=== PATIENT | male | born 1935 | race Caucasian/White ===

== ENCOUNTER 2016-09-28 11:23 | Emergency (ER) | payer MEDICARE, MEDICAID ==
[~2016-09-28] VITALS: Ht 177.8 cm; Wt 76.2 kg
--- NOTE | 2016-09-28 11:26 | NUR ---
bibra from snf due to right sided facial droop. Last known well today, 1100. Patient is awake, alert, follows simple commands, however patient was noted aphasic,. no severe weakness noted,. No sob, sating well on room air. SKin is warm to touch and non diaphoretic. Patient afebrile,. gowned and placed on tele monitor. vss. ekg leonie at bs. ,md Razo at bs.
--- NOTE | 2016-09-28 11:26 | NUR ---
CODE STROKE ACTIVATED
--- NOTE | 2016-09-28 11:27 | NUR ---
iv noted on rfa- iv inserted to lac 18. blood sample sent
--- NOTE | 2016-09-28 11:28 | NUR ---
patient taken to ct
--- NOTE | 2016-09-28 11:28 | NUR ---
patient arrived with left sided gaze only
--- NOTE | 2016-09-28 11:28 | NUR ---
CALLED [facility]' TELE STROKE HOTLINE, NEUROLOGIST DR. URENA
[2016-09-28 11:34] LABS: BASOPHILS % (AUTO) 0.5 % (0.0-2.0); EOSINOPHILS # (AUTO) 0.5 /CMM (0.0-0.7); EOSINOPHILS % (AUTO) 5.5 % (0.0-6.0); HEMATOCRIT 44 % (39-51); HEMOGLOBIN 14.6 g/dL (13.5-17.5); LYMPHOCYTES # (AUTO) 1.4 /CMM (0.8-4.8); LYMPHOCYTES % (AUTO) 15.3 % (20.0-44.0); MEAN CORPUSCULAR HEMOGLOBIN 31 PG (26.0-33.0); MEAN CORPUSCULAR HGB CONC 33 g/dl (31.0-36.0); MEAN CORPUSCULAR VOLUME 94 fL (80-96); MONOCYTES # (AUTO) 0.9 /CMM (0.1-1.30); MONOCYTES % (AUTO) 9.4 % (2.0-12.0); NEUTROPHILS # (AUTO) 6.5 /CMM (1.8-8.9); NEUTROPHILS % (AUTO) 69.3 % (43.0-81.0); PLATELET COUNT (AUTO) 302 /CMM (150-450); RDW COEFFICIENT OF VARIATION 13.9 (11.5-15.0); RED BLOOD CELL COUNT(AUTO) 4.72 MIL/uL (4.5-6.0); WHITE BLOOD COUNT (AUTO) 9.3 K/uL (4.3-11.0)
[2016-09-28] MEDS ORDERED: ASPI-991 PO (11:38)
[2016-09-28] MEDS ORDERED: ACET-2605 PO (11:38)
[2016-09-28] MEDS ORDERED: BISA10SU8 RC (11:38)
[2016-09-28] MEDS ORDERED: AMLO10TA4 PO (11:38)
[2016-09-28] MEDS ORDERED: ATEN50TA PO (11:38)
[2016-09-28] MEDS ORDERED: NA P133E RC (11:38)
[2016-09-28] MEDS ORDERED: SIMV10TA6 PO (11:38)
[2016-09-28] MEDS ORDERED: ACET-868 PO (11:38)
[2016-09-28] MEDS ORDERED: MAGN400O6 PO (11:38)
[2016-09-28] MEDS ORDERED: ALEN70TA45 PO (11:38)
[2016-09-28] MEDS ORDERED: CHOL50004 PO (11:38)
[2016-09-28 11:42] LABS: CALCIUM, SERUM 9.2 mg/dL (8.5-10.1); CARBON DIOXIDE 27 mmol/L (21-32); CHLORIDE 106 mmol/L (98-107); CREATININE 1.5 mg/dL (0.6-1.3); GLUCOSE 112 mg/dL (74-106); POTASSIUM 4.4 mmol/L (3.5-5.1); SODIUM SERUM 142 mmol/L (136-145); UREA NITROGEN, BLOOD 30 mg/dL (7-18)
[2016-09-28 11:46] LABS: INR 0.99 (0.87-1.13); PROTHROMBIN TIME 10.3 SECS (9.5-12.7)
--- NOTE | 2016-09-28 11:49 | NUR ---
MD Razo speaking with Dr. Brand
--- NOTE | 2016-09-28 11:49 | NUR ---
Dr. Brand, neuro-on [facility] assessing patient.
[2016-09-28 11:51] LABS: TROPONIN I < 0.017 ng/mL (0.00-0.056)
--- NOTE | 2016-09-28 11:56 | NUR ---
CALLED [facility] WHERE PATIENT RESIDES.
--- NOTE | 2016-09-28 12:01 | NUR ---
spoke with amarjit nurse from [facility], patient was confirmed to have a verbal baseline until this morning, patient was a/o x2, and did not have the left preference gaze. dr. rowe made aware.
--- NOTE | 2016-09-28 12:01 | NUR ---
CALLED PT'S STEP DAUGHTER SHELLEY [phone].
[2016-09-28] MEDS ORDERED: IV NS 0.9% 250 ML IV ONE (12:03)
[2016-09-28] MEDS ORDERED: IOHEXOL-350 100 ML VIAL IV ONE (12:04)
[2016-09-28] MEDS ORDERED: CT SWABBABLE VALVE TRANS SET 1 EA INFUS.SET MC ONE (12:04)
--- NOTE | 2016-09-28 12:09 | NUR ---
pt taken to ct again for cta
[2016-09-28] MEDS ORDERED: ALTEPLASE 100 MG/VIAL VIAL IV ONE ×3 (12:30→13:00)
--- NOTE | 2016-09-28 12:34 | NUR ---
CALLED [facility], SPOKE TO JOSELIN BARDALES TO INFORM HER OF [employer] [facility]. JOSELIN BARDALES STATES SHE WILL MAKE ARRAGEMENTS FOR TRANSFER
[2016-09-28] MEDS ORDERED: IV SET PRIMARY PUMP SET 1 EA INFUS.SET MC ONE (12:36)
--- NOTE | 2016-09-28 12:47 | NUR ---
FAXED FACESHEET TO [facility]
--- NOTE | 2016-09-28 14:37 | NUR ---
[facility] CALLED [facility] FOR TRANSPORT 45MINS.
[2016-09-28 14:47] VITALS: BP 144/88
--- NOTE | 2016-09-28 14:59 | NUR ---
PT WILL BE TRANSFERRED TO [facility] ICU ROOM [address] US NUMBER FOR REPORT IS [phone]
--- NOTE | 2016-09-28 15:24 | NUR ---
report given from [facility] for hanna
--- NOTE | 2016-09-28 15:24 | NUR ---
Pt trasported to [facility] via acls protocol. vss. Family aware
== END 2016-09-28 15:27 | disposition short-term general hospital (02) ==
LOC: ER 11:28
DX: I65.22 Occlusion and stenosis of left carotid artery (principal); R41.82 Altered mental status, unspecified; J43.9 Emphysema, unspecified; E78.5 Hyperlipidemia, unspecified; R91.8 Other nonspecific abnormal finding of lung field; Z79.82 Long term (current) use of aspirin; Z86.73 Personal history of transient ischemic attack (TIA), and cerebral infarction without residual deficits; I10 Essential (primary) hypertension
CPT/HCPCS: 36415; 37195; 70450; 70496; 70498; 71010; 80048; 82962; 84484; 85025; 85730; 87081; 93005; 99291; A4606; J2997; J7050; Q9967; Z7610